=== PATIENT | female | born 1985 | race Caucasian/White ===

== ENCOUNTER 2022-07-24 08:10 | Outpatient (CLI) | payer BC | END 2022-07-24 08:11 | disposition home or self-care (01) | LOC: CSHMRI 08:10 | PROVIDERS: ATTEND Orthopaedic Surgery | DX: S83.281A Other tear of lateral meniscus, current injury, right knee, initial encounter (principal); Z98.890 Other specified postprocedural states; M94.8X6 Other specified disorders of cartilage, lower leg; M89.8X6 Other specified disorders of bone, lower leg ==